=== PATIENT | female | born 1955 | race Caucasian/White ===

== ENCOUNTER → 2021-01-01 10:42 | Outpatient (CLI) | payer MEDICARE, OTHER, SELFPAY | PROVIDERS: PCP Physician Assistant; Referring Provider Physician Assistant; Visit Provider Physician Assistant | DX: M81.0 Age-related osteoporosis without current pathological fracture (principal) | CPT/HCPCS: 77080 ==

== ENCOUNTER → 2021-01-10 08:03 | Outpatient (CLI) | payer MEDICARE, OTHER, SELFPAY ==
--- NOTE | 2021-01-10 | DI.MG.S_ITS ---
BILATERAL DIGITAL SCREENING MAMMOGRAM 3D/2D WITH CAD: 01/10/2021 CLINICAL: Routine screening. Comparison is made to exams dated: 08/20/2019 mammogram, 02/11/2018 mammogram, and 11/25/2016 mammogram - outside location. The tissue of both breasts is predominantly fatty. Current study was also evaluated with a Computer Aided Detection (CAD) system. There are benign cysts in both breasts. There also are benign diffuse calcifications in both breasts. Additionally, there are benign calcifications in both breasts. No significant masses, calcifications, or other findings are seen in either breast. There has been no significant interval change. IMPRESSION: BENIGN There is no mammographic evidence of malignancy. A 1 year screening mammogram is recommended. This exam was interpreted at Station ID: [id number]. NOTE: For mammograms, a report in lay terms will be sent to the patient. Approximately 15% of breast malignancies will not be visualized mammographically. In the management of a palpable breast mass, a negative mammogram must not discourage biopsy of a clinically suspicious lesion. Electronically Signed By: Oliver Thomason acr/penrad:01/10/2021 09:38:59 letter sent: Normal Exam ACR BI-RADS Category 2: Benign Finding(s) 3342F
== END ==
PROVIDERS: PCP Physician Assistant; Referring Provider Physician Assistant; Visit Provider Physician Assistant
DX: Z12.31 Encounter for screening mammogram for malignant neoplasm of breast (principal)
CPT/HCPCS: 77063; 77067

== ENCOUNTER → 2021-02-20 10:07 | Outpatient (CLI) | payer MEDICARE, OTHER, SELFPAY ==
--- NOTE | 2021-02-20 | DI.CT.S_ITS ---
PROCEDURE: CT ABDOMEN PELVIS W CON INDICATIONS: Left lower quadrant pain TECHNIQUE: After the administration of intravenous contrast, axial sections acquired from the lung bases to the pubic symphysis. Coronal and sagittal reformats were performed. For radiation dose reduction, the following was used: automated exposure control, adjustment of mA and/or kV according to patient size. COMPARISON: None. FINDINGS: Image quality: Excellent. Lung bases: Unremarkable. Small hiatal hernia. Heart: No significant findings. ABDOMEN: Liver: Liver is normal in size. Mild hepatic fatty infiltration. There are multiple low-density nodules in liver, compatible with hepatic cysts. Gallbladder: Unremarkable. Biliary ducts: Unremarkable. Pancreas: Unremarkable. Spleen: Unremarkable. Adrenal Glands: Unremarkable. Kidneys and Ureters: Unremarkable. Stomach and Bowel: There is diffuse colonic wall thickening involving the transverse colon, splenic flexure, descending and sigmoid colon consistent with colitis. Peritoneum: No abnormal intraperitoneal fluid. No free air. Ventral Wall: No hernias. Abdominal Nodes: No retroperitoneal or mesenteric adenopathy by size criteria. Vessels: Aorta and inferior vena cava are normal in size. PELVIS: Pelvic Organs: Uterus is normal. Ovaries are not well seen. No pathological free-fluid in pelvis.. Bladder: Unremarkable. Pelvic Nodes: No enlarged lymph nodes. Miscellaneous: No hernias are seen. Bones: There is moderate degenerative disease at L5-S1. IMPRESSION: 1. Diffuse colonic wall thickening involving the transverse colon, splenic flexure, descending and sigmoid colon consistent with colitis. Differential diagnoses include infectious colitis versus inflammatory bowel disease. Recommend clinical correlation. 2. Low-density nodules in liver are most likely hepatic cysts. 3. Hepatic steatosis. Dictated by: Art Catalan M.D. on 02/21/2021 at 12:12 Approved by: Art Catalan M.D. on 02/21/2021 at 12:57
== END ==
PROVIDERS: PCP Physician Assistant; Referring Provider Internal Medicine Gastroenterology; Visit Provider Internal Medicine Gastroenterology
DX: R10.32 Left lower quadrant pain (principal); K44.9 Diaphragmatic hernia without obstruction or gangrene; K76.0 Fatty (change of) liver, not elsewhere classified
CPT/HCPCS: 74177

== ENCOUNTER → 2022-02-27 15:43 | Outpatient (CLI) | payer MEDICARE, OTHER, SELFPAY ==
[2022-02-27 17:50] LABS: Cancer Antigen 125 < 5.5 U/mL (0-35)
== END ==
PROVIDERS: PCP Physician Assistant; Referring Provider Obstetrics & Gynecology; Visit Provider Obstetrics & Gynecology
DX: R10.32 Left lower quadrant pain (principal)
CPT/HCPCS: 36415; 86304

== ENCOUNTER → 2022-04-29 11:43 | Outpatient (CLI) | payer MEDICARE, OTHER, SELFPAY ==
--- NOTE | 2022-04-29 11:46 | DI.RAD.S_ITS ---
PROCEDURE: XR HIP W PEL IF DONE LT 2V INDICATIONS: Pain in left hip TECHNIQUE: AP pelvis with lateral view(s) of the left hip(s). COMPARISON: None. FINDINGS: Bones: No fractures or dislocations. Pelvic ring appears intact. No suspicious bony lesions. Soft tissues: The visualized bowel gas pattern is normal. No suspicious soft tissue calcifications. IMPRESSION: Normal left hip. Dictated by: Grecia Tello M.D. on 04/29/2022 at 16:18 Approved by: Grecia Tello M.D. on 04/29/2022 at 16:18
== END ==
PROVIDERS: PCP Physician Assistant; Referring Provider Physician Assistant; Visit Provider Physician Assistant
DX: M25.552 Pain in left hip (principal)
CPT/HCPCS: 73502

== ENCOUNTER → 2023-03-22 08:08 | Outpatient (CLI) | payer MEDICARE, OTHER, SELFPAY ==
[2023-03-22 08:56] LABS: Hematocrit 36.9 % (36-46); Hemoglobin 12.4 g/dL (12.0-16.0); Mean Corpuscular HGB Conc 33.5 % (30-36); Mean Corpuscular Hemoglobin 30.3 PG (26-34); Mean Corpuscular Volume 90.4 fL (80-100); Platelet Count 184 X10^3/uL (150-400); Red Blood Cell Count 4.08 X10^6/uL (4.0-5.2); Red Cell Distribution Width 13.3 % (11.6-14.8); White Blood Cell Count 4.1 X10^3/uL (4.5-11.0)
[2023-03-22 09:12] LABS: Alanine Aminotransferase 16 IU/L (<35); Albumin 4.1 g/dL (3.5-5.0); Albumin Globulin Ratio 1.6 (1.0-2.8); Alkaline Phosphatase 42 U/L (38-126); Aspartate Aminotransferase 21 IU/L (14-36); BUN Creatinine Ratio 26.5 (6-22); Bilirubin Total 0.4 mg/dL (0.2-1.3); Blood Urea Nitrogen 13 mg/dL (7-17); Calcium 8.4 mg/dL (8.4-10.2); Carbon Dioxide 26 mmol/L (22-32); Chloride 105 mmol/L (98-107); Cholesterol 188 mg/dL (140-199); Estimated Glomerular Filt Rate > 60 mL/min (>60); Globulin 2.5 g/dL (1.7-4.1); Glucose 92 mg/dL (80-110); HDL Cholesterol 55 mg/dL (40-60); HEMOLYSIS 18 (0-50); LDL Cholesterol Calculated 115 mg/dL (<100); Potassium 4.3 mmol/L (3.4-5.1); Sodium 137 mmol/L (137-145); Total Protein 6.6 g/dL (6.3-8.2); Triglycerides 88 mg/dL (35-150)
[2023-03-22 09:40] LABS: Thyroid Stimulating Hormone 2.03 uIU/mL (0.47-4.68)
[2023-03-22 10:04] LABS: Free T4, Direct Thyroxine 0.99 ng/dL (0.78-2.19)
== END ==
PROVIDERS: PCP Registered Nurse Diabetes Educator; Referring Provider Registered Nurse Diabetes Educator; Visit Provider Registered Nurse Diabetes Educator
DX: E78.5 Hyperlipidemia, unspecified (principal); R53.83 Other fatigue; R63.5 Abnormal weight gain
CPT/HCPCS: 36415; 80053; 80061; 84439; 84443; 85027

== ENCOUNTER 2023-04-10 13:14 | Emergency (ER) | payer MEDICARE, OTHER, SELFPAY ==
[2023-04-10 13:28] VITALS: BP 175/79; PULSE 92; RESP 18; TEMP 36.9; O2SAT 98; BMI 21.7
[2023-04-10 14:28] LABS: Add Manual Diff / Slide Review NO; Basophils Absolute Auto 100 /uL (0-100); Basophils Percent Auto 1.2 % (0-2); Eosinophils Absolute Auto 100 /uL (0-450); Eosinophils Percent Auto 2.4 % (2-4); Hematocrit 39.9 % (36-46); Hemoglobin 13.5 g/dL (12.0-16.0); Lymphocytes Absolute Auto 1600 /uL (1100-4500); Lymphocytes Percent Auto 29.2 % (25-40); Mean Corpuscular HGB Conc 33.7 % (30-36); Mean Corpuscular Hemoglobin 30.3 PG (26-34); Mean Corpuscular Volume 89.7 fL (80-100); Monocytes Absolute Auto 400 /uL (0-900); Monocytes Percent Auto 8.2 % (3-14); Neutrophils Absolute Auto 3200 /uL (1500-7000); Platelet Count 218 X10^3/uL (150-400); Red Blood Cell Count 4.45 X10^6/uL (4.0-5.2); Red Cell Distribution Width 13.1 % (11.6-14.8); White Blood Cell Count 5.4 X10^3/uL (4.5-11.0)
[2023-04-10 14:41] LABS: Alanine Aminotransferase 27 IU/L (<35); Albumin 4.6 g/dL (3.5-5.0); Albumin Globulin Ratio 1.5 (1.0-2.8); Alkaline Phosphatase 45 U/L (38-126); Aspartate Aminotransferase 33 IU/L (14-36); Bilirubin Total 0.9 mg/dL (0.2-1.3); Blood Urea Nitrogen 12 mg/dL (7-17); Calcium 9.3 mg/dL (8.4-10.2); Carbon Dioxide 23 mmol/L (22-32); Chloride 105 mmol/L (98-107); Estimated Glomerular Filt Rate > 60 mL/min (>60); Globulin 3.1 g/dL (1.7-4.1); Glucose 96 mg/dL (80-110); HEMOLYSIS < 15 (0-50); Lipase 45 U/L (23-300); Potassium 4.2 mmol/L (3.4-5.1); Sodium 136 mmol/L (137-145); Total Protein 7.7 g/dL (6.3-8.2)
[2023-04-10 15:20] VITALS: BP 111/62; PULSE 87; RESP 18; O2SAT 98
--- NOTE | 2023-04-10 15:48 | ED_ITS ---
HPI - General Adult General Chief complaint: Abdominal Pain Stated complaint: ABD pain, L shoulder pain Time Seen by Provider: 04/10/23 15:20 Source: patient Mode of arrival: Ambulatory History of Present Illness HPI narrative: 67-year-old female who is here for evaluation of left-sided abdominal pain. States the symptoms started yesterday. Became fairly intense overnight but now has improved. She also with the same time had tingling in her left upper arm from her shoulder to her elbow. She also thinks that this is improved. Her abdominal pain is not related to nor is change by urinating or bowel movements. She is no history of kidney stones. She went to the walk-in clinic and was sent to the emergency department for further evaluation. She denies chest pain or shortness of breath. Related Data Previous Rx's Medication Instructions Recorded progesterone micronized 100 mg 100 mg PO QPM #90 caps 02/18/23 capsule estradiol 0.05 mg/24 hr semiweekly 1 patch transdermal ONCE #24 02/28/23 transdermal patch patches clonazepam 0.5 mg tablet 0.5 mg PO BEDTIME PRN anxiety #90 03/17/23 tabs gabapentin 300 mg capsule 300 mg PO DAILY #90 caps 03/17/23 Allergies Allergy/AdvReac Type Severity Reaction Status Date / Time No Known Drug Allergies Allergy Unverified 03/17/23 11:25 Review of Systems Cardiovascular Cardiovascular: Reports system reviewed and no additional complaints, except as documented Respiratory Respiratory: Reports system reviewed and no additional complaints, except as documented Gastrointestinal Gastrointestinal: Reports system reviewed and no additional complaints, except as documented Integumentary/Breasts Skin/Breast: Reports system reviewed and no additional complaints, except as documented Neurologic Neurologic: Reports system reviewed and no additional complaints, except as documented Hematologic/Lymphatic On Anticoagulants: No Patient History Medical History Anxiety Chronic LLQ pain DDD (degenerative disc disease) History of osteoporosis History of UTI Other low back pain Postmenopausal atrophic vaginitis Postmenopausal HRT (hormone replacement therapy) Rosacea Surgical History History of surgery Hx of unilateral salpingectomy (03/29/10) Status post emergency section Status post laparoscopy Social History household members: spouse Smoking Status: Never smoker alcohol intake: current Smoking Status: Never smoker alcohol intake frequency: a few times a week Substance Use Type: does not use Exam Initial Vital Signs Initial Vital Signs: Vital Signs Temperature 98.4 F 04/10/23 13:28 Pulse Rate 92 H 04/10/23 13:28 Respiratory Rate 18 04/10/23 13:28 Blood Pressure 175/79 H 04/10/23 13:28 Pulse Oximetry 98 04/10/23 13:28 Oxygen Delivery Method Room Air 04/10/23 13:28 HENMT Head: normal to inspection and normocephalic Resp Effort & Inspection: normal respiratory effort Auscultation: clear to auscultation bilaterally Cardio Rate: regular rate Rhythm: regular rhythm GI Inspection: normal to inspection and non-distended Palpation: soft and No tender Skin General: no rashes or lesions noted Neuro General: patient alert, patient awake and moves all extremities Extrem Other: Full range of motion left shoulder. No tenderness to palpation. Course Orders Ordered: ED Orders 04/10/23 13:54 EKG-12 Lead Stat 04/10/23 14:19 Complete Blood Count AUTO DIFF Stat Comprehensive Metabolic Panel Stat Lipase Stat Vital Signs Vital signs: Vital Signs - 8 hr 04/10/23 13:28 04/10/23 15:20 Temperature 98.4 F Pulse Rate 92 H 87 Respiratory Rate 18 18 Blood Pressure 175/79 H 111/62 Pulse Oximetry 98 98 Oxygen Delivery Method Room Air Medical Decision Making Lab Data Lab results reviewed: Yes I reviewed the patient's lab results. 04/10/23 14:19 04/10/23 14:19 Labs: Lab Results 04/10/23 04/10/23 Range/Units 14:19 14:19 WBC 5.4 (4.5-11.0) X10^3/uL RBC 4.45 (4.0-5.2) X10^6/uL Hgb 13.5 (12.0-16.0) g/dL Hct 39.9 (36-46) % MCV 89.7 (80-100) fL MCH 30.3 (26-34) PG MCHC 33.7 (30-36) % RDW 13.1 (11.6-14.8) % Plt Count 218 (150-400) X10^3/uL Neut % (Auto) 59.0 (50-75) % Lymph % (Auto) 29.2 (25-40) % Petroleum % (Auto) 8.2 (3-14) % Eos % (Auto) 2.4 (2-4) % Baso % (Auto) 1.2 (0-2) % Neut # (Auto) 3200 (7249-4481) /uL Lymph # (Auto) 1600 (5187-3351) /uL Petroleum # (Auto) 400 (0-900) /uL Eos # (Auto) 100 (0-450) /uL Baso # (Auto) 100 (0-100) /uL Sodium 136 L (137-145) mmol/L Potassium 4.2 (3.4-5.1) mmol/L Chloride 105 (98-107) mmol/L Carbon Dioxide 23 (22-32) mmol/L BUN 12 (7-17) mg/dL Creatinine 0.50 L (0.52-1.04) mg/dL Estimated GFR > 60 (>60) mL/min BUN/Creatinine Ratio 24.0 H (6-22) Glucose 96 (80-110) mg/dL Calcium 9.3 (8.4-10.2) mg/dL Total Bilirubin 0.9 (0.2-1.3) mg/dL AST 33 (14-36) IU/L ALT 27 (<35) IU/L Alkaline Phosphatase 45 (38-126) U/L Total Protein 7.7 (6.3-8.2) g/dL Albumin 4.6 (3.5-5.0) g/dL Globulin 3.1 (1.7-4.1) g/dL Albumin/Globulin Ratio 1.5 (1.0-2.8) Lipase 45 (23-300) U/L Urine Dip Bedside Urine Glucose Negative Bedside Urine Bilirubin - Negative Bedside Urine Ketone - Negative Urine Specific [place] 1.010 Bedside Urine Occult Blood - Negative Bedside Urine pH 6.0 Bedside Urine Protein - Negative Bedside Urine Urobilinogen - Negative Bedside Urine Nitrite - Negative Bedside Urine Leukocytes - Negative Esterase Point of care testing: Urine Dip Bedside Urine Glucose Negative Bedside Urine Bilirubin - Negative Bedside Urine Ketone - Negative Urine Specific [place] 1.010 Bedside Urine Occult Blood - Negative Bedside Urine pH 6.0 Bedside Urine Protein - Negative Bedside Urine Urobilinogen - Negative Bedside Urine Nitrite - Negative Bedside Urine Leukocytes - Negative Esterase ECG Data Attestation: I personally reviewed and interpreted this ECG as follows: Interpretation: Sinus rhythm Ventricular rate of 97 Normal axis Normal QRS Normal QTC No ST T wave changes MDM Narrative Medical decision making narrative: Patient has had symptoms from yesterday and it has actually improved but not completely gone. Her workup here and exam is relatively unremarkable. I have l ow suspicion for ACS. We did consider potential for kidney stone as her pain was fairly intense last night but has improved. We discussed potentially obtaining another CT scan although she is had multiple CT scans in the past because she is chronic abdominal and pelvic discomfort. She would rather go home to see what happens over the next couple days. We discussed the use of anti-inflammatories. She was given return precautions. She expressed understanding and agreement with plan. Discharge Plan Departure Patient Disposition: Home Clinical Impression: Arm pain, left, Abdominal pain Instructions: DI for Abdominal Pain-Adult Activity Restrictions/Additional Instructions: Recommend that you continue to take all of your medications as directed. If your symptoms worsen over the next 24-48 hours please return to the emergency department for further evaluation. Prescriptions: No Action progesterone micronized 100 mg capsule 100 mg PO QPM Qty: 90 3RF estradiol 0.05 mg/24 hr patch semiweekly 1 patch transdermal ONCE Qty: 24 4RF gabapentin 300 mg capsule 300 mg PO DAILY Qty: 90 1RF clonazepam 0.5 mg tablet 0.5 mg PO BEDTIME PRN (Reason: anxiety) Qty: 90 0RF Referrals: Johny Barkley ARNP [Primary Care Provider] - Stand Alone Forms: Patient Portal/API
== END 2023-04-10 15:53 | disposition home or self-care (01) ==
PROVIDERS: Emergency Provider Emergency Medicine; PCP Registered Nurse Diabetes Educator
DX: M79.602 Pain in left arm (principal); R10.9 Unspecified abdominal pain
CPT/HCPCS: 36415; 80053; 81003; 83690; 85025; 93005; 93010; 99283; 99284

== ENCOUNTER → 2023-04-17 12:08 | Outpatient (CLI) | payer MEDICARE, OTHER, SELFPAY ==
[2023-04-18 17:26] LABS: Deamidated Gliadin Ab IgA 4 units (0-19); Deamidated Gliadin Ab IgG 2 units (0-19); Immunoglobulin A,Qn 227 mg/dL (87-352); t-Transglutaminase IgA <2 U/mL (0-3)
[2023-04-20 21:26] LABS: Almond IgE 0.12 kU/L (Class 0/I); Cashew Nut IgE <0.10 kU/L (Class 0); Codfish Allergy IgE < 0.10 kU/L (Class 0); Egg White IgE <0.10 kU/L (Class 0); Hazelnut IgE 1.97 kU/L (Class III); Milk IgE <0.10 kU/L (Class 0); Peanut IgE 0.24 kU/L (Class 0/I); Salmon Allergy IgE < 0.10 kU/L (Class 0); Sesame seed Allergy IgE 0.25 kU/L (Class 0/I); Shrimp IgE <0.10 kU/L (Class 0); Soybean IgE 0.11 kU/L (Class 0/I); Tuna Allergy IgE < 0.10 kU/L (Class 0); Walnut IgE <0.10 kU/L (Class 0); Wheat Allergy IgE 0.19 kU/L (Class 0/I)
== END ==
PROVIDERS: PCP Registered Nurse Diabetes Educator; Referring Provider Registered Nurse Diabetes Educator; Visit Provider Registered Nurse Diabetes Educator
DX: R10.9 Unspecified abdominal pain (principal); N89.8 Other specified noninflammatory disorders of vagina
CPT/HCPCS: 36415; 82784; 83516; 86003; 87210; 87220

== ENCOUNTER 2023-09-18 10:54 | Day surgery (SDC) | payer MEDICARE, OTHER, SELFPAY ==
[2023-09-03 08:40] VITALS: BMI 22.6
--- NOTE | 2023-09-18 | PATH_ITS ---
[facility] Accession Number: [id number] No. of containers..01 Tissue . 01 Material submitted: . fallopian tube - RIGHT FALLOPIAN TUBE . 01 Diagnosis: RIGHT FALLOPIAN TUBE, RIGHT SALPINGECTOMY: Fallopian tube without pathologic abnormalities. Negative for atypia and malignancy. MRV 09/22/2023 1602 Local . 01 Electronically signed: . Steven Guerra MD, Pathologist NPI- [id number] . 01 Gross description: . The specimen is received in formalin labeled with the patient's name, , and right fallopian tube, and consists of a single violaceous, fimbriated fallopian tube measuring 5.3 cm in length and 1.0 cm in diameter. No paratubal cysts are seen. The external surface is inked blue. A lumen is identified. Manager Printing sections to include the entire bisected fimbriae are submitted in cassette A1. ([id number]) /HELENE 09/20/2023 2230 Local . 01 Pathologist provided ICD-10: R10.32 . 01 CPT . 391274 Specimen Comment: A courtesy copy of this report has been sent to [phone] Performed at: 01 [facility] [address] [place] [address] Suite [facility] [place], [place], [place] [id number] MD Alvin Alcaraz MD Phone: [phone]
[2023-09-18 11:28] VITALS: BMI 22.6
[2023-09-18 11:45] VITALS: BP 114/71; PULSE 77; RESP 16; TEMP 36.1; O2SAT 98
[2023-09-18] MEDS: LACTATED RINGERS 1,000 ML 42 ML IV ×2 (11:59→13:55)
--- NOTE | 2023-09-18 12:40 | PM.GYNHP.1 ---
History of Present Illness History of Present Illness Reason for admission: pelvic pain (Left lower quadrant) Narrative: Dayna Miranda is a 68 year old female 1 para 1 who presents for diagnostic laparoscopy with possible lysis of adhesions due to persistent left lower quadrant pain. She has had a prior emergency section, and then years later a diagnostic laparoscopy with lysis of adhesions. 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 Chronic pelvic pain in female Other low back pain Rosacea Anxiety DDD (degenerative disc disease) Chronic LLQ pain Postmenopausal atrophic vaginitis History of osteoporosis History of UTI Postmenopausal HRT (hormone replacement therapy) Surgical History Hx of unilateral salpingectomy (03/29/10) History of surgery Status post laparoscopy Status post emergency section Social History household members: spouse Smoking Status: Never smoker alcohol intake: current Meds Home Medications and Allergies Home Medications Medication Instructions Recorded Confirmed Type progesterone micronized 100 mg 100 mg PO QPM #90 caps 02/18/23 09/18/23 Rx capsule estradiol 0.05 mg/24 hr semiweekly 1 patch transdermal ONCE #24 02/28/23 09/18/23 Rx transdermal patch patches gabapentin 300 mg capsule 300 mg PO DAILY #90 caps 03/17/23 09/18/23 Rx clonazepam 0.5 mg tablet 0.5 mg PO BEDTIME PRN anxiety #30 09/03/23 09/18/23 Rx tabs Allergies Allergy/AdvReac Type Severity Reaction Status Date / Time No Known Drug Allergies Allergy Verified 09/18/23 11:18 Exam Vital Signs (past 8 hours): - 09/18/23 11:45 Temperature 97 F L Pulse Rate 77 Respiratory Rate 16 Blood Pressure 114/71 Pulse Oximetry 98 Oxygen Delivery Method Room Air Oxygen Delivery Method Room Air Narrative Exam Narrative: HEENT: No thyromegaly, no anterior cervical or supraclavicular lymphadenopathy. Lungs:Clear to auscultation bilaterally, no wheezes. Cardiovascular: Regular rate and rhythm, no murmurs, rubs, or gallops. Abdomen: Well-healed Pfannenstiel and laparoscopy scars. No hepatosplenomegaly. No masses palpable. External genitalia: Normal Vagina: Normal Cervix: Normal Bimanual exam: 6 Week size anteverted uterus. Mobile. Extremities: No edema Assessment & Plan Assessment & Plan narrative: Assessment: 68-year-old 1 para 1 with persistent left lower quadrant pain History of an emergency section and then a diagnostic laparoscopy with lysis of adhesions and removal of a tube Plan: Diagnostic laparoscopy with possible lysis of adhesions, possible removal of remaining fallopian tube The risks, benefits, and alternatives to the procedure were explained to the patient. The risks including bleeding, infection, injury to the bowel, bladder, or ureters. She understands these risks and agrees to proceed. A full par Q was held and consent form was signed. Time Spent With Patient Time with patient: less than 30 minutes
[2023-09-18] MEDS: ACETAMINOPHEN 325 MG TABLET 975 MG PO (12:50)
--- NOTE | 2023-09-18 12:51 | PM.PREOP ---
Pre-operative Note Interval Note History & Physical reviewed/Exam performed by Physician: Yes Changes to H&P: No H&P completed within 30 days and has changed as indicated here:: 09/18/23
--- NOTE | 2023-09-18 13:43 | SUR.OPER ---
Lithotomy on padded OR bed. [place] Pad Positioner under torso. Head on pillow, arms padded and tucked at sides. Legs secured in padded yellow fins stirrups.
[2023-09-18] MEDS: BUPIVACAINE 0.5% (PF) 30 ML, EPINEPHrine 0.15 MG INJ (13:56)
[2023-09-18 14:20] VITALS: BP 132/74; PULSE 69; RESP 16; TEMP 36.2; O2SAT 98
[2023-09-18 14:25] VITALS: BP 135/75; PULSE 78; RESP 16; O2SAT 98
--- NOTE | 2023-09-18 14:25 | PM.GYNOP.1 ---
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 possible lysis of adhesions Not Applicable Anna Cortes MD Indications: 5 wk size anteverted uterus Normal ovaries Normal left tube Normal liver Normal appendix Right colon to adnexal/sidewall adhesions Gallbladder not visualized Surgeon: Anna Cortes Anesthesia Type: General and Local Operative Notes Findings: Left colon stuck to the left pelvic sidewall Normal left ovary Normal right tube and ovary Normal liver and gallbladder Closure Type: primary Specimen(s): right tube Estimated blood loss (mL): 3 Blood products transfused: none Procedure in detail: After informed consent was obtained, the patient was taken to the operating room where she was placed in the dorsal supine position. After adequate general endotracheal anesthesia was achieved, she was placed in the dorsal lithotomy position, and prepped and draped in the usual sterile fashion. A time-out was performed. A bivalve speculum was placed into the vagina and the anterior lip of the cervix was grasped with a single-tooth tenaculum. The cervical os was sequentially dilated until the Zumi uterine manipulator could pass easily into the endometrial cavity. The single-tooth tenaculum was removed from the anterior lip of the cervix. The bivalve speculum was removed from the vagina. Attention was turned to the abdomen where 6 cc of 0.5% Marcaine with epinephrine were injected in the umbilical fold. A 5 mm incision was made. The Veress needle was placed into the peritoneal cavity, and its placement confirmed by aspiration and drop test. The abdominal cavity was insufflated with 3.0 L of CO2. The Veress needle was removed, and a 5 mm trocar was placed without difficulty. The pelvis and abdomen were examined with findings noted above. Two other incisions were made after 6 cc of 0.5% Marcaine with epinephrine were injected, these were 4 cm lateral to the midline at the level of the umbilicus. Two 5 mm trocars were placed under direct visualization. Using gentle traction, the right colon was taken down off of the left pelvic sidewall using the endo Joni both with blunt dissection, cutting, and cautery with cutting where there were small blood vessels. This was all done with care to avoid the bowel. There was no bleeding noted. The instruments were removed from the abdomen. The CO2 was allowed to escape. The incisions were repaired with 4-0 Monocryl in a subcuticular fashion. Steri-Strips and Allevyn dressings were placed. The Zumi uterine manipulator was removed from the uterus. Sponge, lap, and instrument counts were correct x2. The patient tolerated the procedure well, and was taken to PACU in stable condition. Complications: none Post-operative Condition: stable Disposition: PACU Plan for aftercare: Home after recovery
[2023-09-18 14:30] VITALS: BP 135/75; PULSE 63; RESP 16; O2SAT 95
[2023-09-18 14:35] VITALS: BP 136/64; PULSE 63; RESP 16; O2SAT 98
[2023-09-18 14:45] VITALS: BP 133/69; PULSE 57; RESP 16; O2SAT 98
[2023-09-18] MEDS: OXYCODONE IR 5 MG TABLET PO (14:53)
== END 2023-09-18 15:29 | disposition home or self-care (01) ==
PROVIDERS: PCP Registered Nurse Diabetes Educator; Referring Provider Obstetrics & Gynecology; Visit Provider Obstetrics & Gynecology
PROC: (CPT 49320; principal; 2023-09-18 12:15)
DX: R10.32 Left lower quadrant pain (principal); N73.6 Female pelvic peritoneal adhesions (postinfective)
CPT/HCPCS: 58661; J0171; J0330; J1100; J1885; J2405; J2704; J3010

== ENCOUNTER → 2023-12-01 14:13 | Outpatient (CLI) | payer MEDICARE, OTHER, SELFPAY ==
--- NOTE | 2023-12-01 14:16 | DI.MG.S_ITS ---
BILATERAL DIGITAL SCREENING MAMMOGRAM 3D/2D WITH CAD: 12/01/2023 CLINICAL: Routine screening. Family history of breast cancer. Comparison is made to exams dated: 01/10/2021 mammogram - [facility], 08/20/2019 mammogram, and 02/11/2018 mammogram - outside location. Both breasts are almost entirely fatty (category a/<25% glandular tissue). Current study was also evaluated with a Computer Aided Detection (CAD) system. There are benign cysts in both breasts. There also are benign diffuse calcifications in both breasts. Additionally, there are benign calcifications in both breasts. No significant masses, calcifications, or other findings are seen in either breast. There has been no significant interval change. IMPRESSION: BENIGN There is no mammographic evidence of malignancy. A 1 year screening mammogram is recommended. Based on the Tyrer Cuzick model (a risk assessment model) the patient's lifetime risk is 5.4% and her 10 year risk is 3.0%. According to the ACR, ACS, and NCCN guidelines, an annual breast MRI exam along with mammogram is recommended if the patient's lifetime risk is 20% or greater. This exam was interpreted at Station ID: [id number]. NOTE: For mammograms, a report in lay terms will be sent to the patient. Approximately 15% of breast malignancies will not be visualized mammographically. In the management of a palpable breast mass, a negative mammogram must not discourage biopsy of a clinically suspicious lesion. Electronically Signed By: Grecia reaves/tiffanie:12/01/2023 16:57:47 letter sent: Normal Exam ACR BI-RADS Category 2: Benign Finding(s) 3342F
--- NOTE | 2023-12-01 14:16 | DI.RAD.S_ITS ---
PROCEDURE: XR DEXA AXIAL SKELETON INDICATIONS: ROUTINE SCREENING; Age-related osteoporosis COMPARISON: [facility], , XR DEXA AXIAL SKELETON, 01/01/2021, 11:03. FINDINGS: Lumbar Spine: Bone mineral density 0.752 g/cm2, T score -2.7, dissimilar scan type does not allow for statistical comparison. Left Hip: Bone mineral density 0.683 g/cm2, T score -2.1, dissimilar scan type does not allow for statistical comparison. Left Femoral Neck: Bone mineral density 0.563 g/cm2, T score -2.6, dissimilar scan type does not allow for statistical comparison. Right Hip: Bone mineral density 0.682 g/cm2, T score -2.1, dissimilar scan type does not allow for statistical comparison. Right Femoral Neck: Bone mineral density 0.601 g/cm2, T score -2.2, dissimilar scan type does not allow for statistical comparison. Fracture Risk Calculation (when applicable): Not applicable due to osteoporosis diagnosis. (T score greater or equal to -1.0 to: NORMAL) (T score from -1.1 to -2.4: OSTEOPENIA) (T score less than or equal to -2.5: OSTEOPOROSIS) IMPRESSION: Osteoporosis. Follow-up guidelines as follows: Osteoporosis: Consider a repeat DEXA and Vertebral Fracture Assessment (VFA) exam in 2 years or sooner if medically necessary, to reassess this patient's status. Osteopenia: Consider a repeat DEXA in 2-3 years to reassess this patient's status, or if there is a new clinical indication. Normal: Consider a repeat DEXA in 5 years or sooner, or if there is a new clinical indication. Dictated by: Rodrigo Cho M.D. on 12/01/2023 at 15:13 Approved by: Rodrigo Cho M.D. on 12/01/2023 at 15:14
== END ==
PROVIDERS: PCP Registered Nurse Diabetes Educator; Referring Provider Registered Nurse Diabetes Educator; Visit Provider Registered Nurse Diabetes Educator
DX: M81.0 Age-related osteoporosis without current pathological fracture (principal); Z12.31 Encounter for screening mammogram for malignant neoplasm of breast; Z13.820 Encounter for screening for osteoporosis; R92.313 Mammographic fatty tissue density, bilateral breasts
CPT/HCPCS: 77063; 77067; 77080

== ENCOUNTER → 2025-01-07 14:03 | Outpatient (CLI) | payer MEDICARE, OTHER, SELFPAY | PROVIDERS: PCP Registered Nurse Diabetes Educator; Referring Provider Registered Nurse Diabetes Educator; Visit Provider Physician Assistant | DX: K59.00 Constipation, unspecified (principal) | CPT/HCPCS: 36415; 86231; 86258; 86364 ==

== ENCOUNTER → 2025-01-20 15:11 | Outpatient (CLI) | payer MEDICARE, OTHER, SELFPAY ==
--- NOTE | 2025-01-20 15:13 | DI.MG.S_ITS ---
MM screening mammo BI: 01/20/2025. BI-RADS: 2 CLINICAL: 69-year old female for bilateral screening mammogram. Tyrer-Cuzick lifetime risk of 5.4%. No personal or first-degree family history of breast cancer. The patient had a prior left breast biopsy. PRIOR EXAMS 12/01/2023, 01/10/2021. MAMMOGRAPHY TECHNIQUE: 2D and 3D (tomosynthesis) digital mammographic views obtained, with additional images as needed for full coverage. Current study was also evaluated with a Computer Aided Detection (CAD) system. DENSITY B. There are scattered areas of fibroglandular density. MAMMOGRAPHY FINDINGS Bilateral: Benign-appearing calcifications noted. There are no suspicious masses, calcifications, or other findings in the breast. IMPRESSION: * No evidence of malignancy with benign findings. RECOMMENDATIONS Bilateral * Annual screening mammography. OVERALL ASSESSMENT CATEGORY BI-RADS-2: Benign. The [employer] recommends annual screening mammography beginning at age 40 for women with average risk of breast cancer. ELECTRONICALLY SIGNED: Monroe Estrada M.D. on 01/23/2025 at 09:37:51 PM PT Interpreting Station ID: [id number]
== END ==
PROVIDERS: PCP Registered Nurse Diabetes Educator; Referring Provider Registered Nurse Diabetes Educator; Visit Provider Registered Nurse Diabetes Educator
DX: Z12.31 Encounter for screening mammogram for malignant neoplasm of breast (principal)
CPT/HCPCS: 77063; 77067

== ENCOUNTER → 2025-02-12 10:55 | Outpatient (CLI) | payer MEDICARE, OTHER, SELFPAY | PROVIDERS: PCP Registered Nurse Diabetes Educator; Referring Provider Registered Nurse Diabetes Educator; Visit Provider Chiropractor | DX: R30.0 Dysuria (principal) | CPT/HCPCS: 81002 ==

== ENCOUNTER → 2025-02-24 09:50 | Outpatient (CLI) | payer MEDICARE, OTHER, SELFPAY ==
[2025-02-24 10:54] LABS: Bilirubin Urine UA NEGATIVE (NEGATIVE); Color Urine UA YELLOW; Glucose Urine UA NEGATIVE (Negative); Ketones Urine UA NEGATIVE (NEGATIVE); Leukocyte Esterase Urine UA 1+ (NEGATIVE); Nitrite Urine UA POSITIVE (Negative); Occult Blood Urine UA 1+ (Negative); Protein Urine UA NEGATIVE (Negative); Specific Gravity Urine UA <=1.005 (1.000-1.035); Urobilinogen Urine UA 0.2 E.U./dL (0.2)
[2025-02-24 10:56] LABS: Appearance Urine UA Slightly Cloudy; pH Urine UA 7.0 (4.5-8.0)
[2025-02-24 11:01] LABS: Culture Indicated Urine Specimen Cultured
== END ==
PROVIDERS: PCP Registered Nurse Diabetes Educator; Referring Provider Registered Nurse Diabetes Educator; Visit Provider Chiropractor
DX: N39.0 Urinary tract infection, site not specified (principal)
CPT/HCPCS: 81001; 87077; 87086; 87186

== ENCOUNTER → 2025-04-01 14:09 | Outpatient (CLI) | payer MEDICARE, OTHER, SELFPAY ==
[2025-04-01 16:13] LABS: Appearance Urine UA CLEAR; Bilirubin Urine UA NEGATIVE (NEGATIVE); Color Urine UA YELLOW; Glucose Urine UA NEGATIVE (Negative); Ketones Urine UA NEGATIVE (NEGATIVE); Leukocyte Esterase Urine UA TRACE (NEGATIVE); Nitrite Urine UA NEGATIVE (Negative); Occult Blood Urine UA NEGATIVE (Negative); Protein Urine UA NEGATIVE (Negative); Specific Gravity Urine UA 1.020 (1.000-1.035); Urobilinogen Urine UA 0.2 E.U./dL (0.2)
[2025-04-01 16:16] LABS: pH Urine UA 5.5 (4.5-8.0)
[2025-04-01 16:22] LABS: Culture Indicated Urine Cult Not Indicated
[2025-04-02 14:39] LABS: Trichomoas vaginalis Negative (Negative)
== END ==
PROVIDERS: PCP Registered Nurse Diabetes Educator; Visit Provider Obstetrics & Gynecology
DX: R30.0 Dysuria (principal); N89.8 Other specified noninflammatory disorders of vagina
CPT/HCPCS: 81001; 87480; 87510; 87660

== ENCOUNTER → 2025-04-07 07:54 | Outpatient (CLI) | payer MEDICARE, OTHER, SELFPAY ==
[2025-04-07 08:33] LABS: Bilirubin Urine UA 1+ (NEGATIVE); Glucose Urine UA TRACE g/dL (Negative); Ketones Urine UA 3+ (NEGATIVE); Leukocyte Esterase Urine UA 1+ (NEGATIVE); Nitrite Urine UA POSITIVE (Negative); Occult Blood Urine UA NEGATIVE (Negative); Protein Urine UA 1+ (Negative); Specific Gravity Urine UA 1.020 (1.000-1.035); Urobilinogen Urine UA 4.0 E.U./dL (0.2)
[2025-04-07 08:34] LABS: Color Urine UA Orange; pH Urine UA 5.5 (4.5-8.0)
[2025-04-07 08:35] LABS: Appearance Urine UA Slightly Cloudy
[2025-04-07 09:18] LABS: Culture Indicated Urine Specimen Cultured
[2025-04-07 10:07] LABS: Ictotest Urine Negative (Negative)
== END ==
PROVIDERS: PCP Registered Nurse Diabetes Educator; Referring Provider Obstetrics & Gynecology; Visit Provider Obstetrics & Gynecology
DX: R30.0 Dysuria (principal)
CPT/HCPCS: 81001; 87077; 87086; 87186

== ENCOUNTER → 2025-04-17 06:20 | Outpatient (CLI) | payer MEDICARE, OTHER, SELFPAY | PROVIDERS: PCP Registered Nurse Diabetes Educator; Visit Provider Registered Nurse Diabetes Educator | DX: N39.0 Urinary tract infection, site not specified (principal) | CPT/HCPCS: 87086 ==

== ENCOUNTER → 2025-04-18 12:54 | Outpatient (CLI) | payer MEDICARE, OTHER, SELFPAY ==
[2025-04-18 13:24] LABS: Appearance Urine UA CLEAR; Bilirubin Urine UA NEGATIVE (NEGATIVE); Color Urine UA YELLOW; Glucose Urine UA NEGATIVE (Negative); Ketones Urine UA NEGATIVE (NEGATIVE); Leukocyte Esterase Urine UA NEGATIVE (NEGATIVE); Nitrite Urine UA NEGATIVE (Negative); Occult Blood Urine UA NEGATIVE (Negative); Protein Urine UA NEGATIVE (Negative); Specific Gravity Urine UA <=1.005 (1.000-1.035); Urobilinogen Urine UA 0.2 E.U./dL (0.2)
[2025-04-18 13:30] LABS: pH Urine UA 6.0 (4.5-8.0)
[2025-04-18 14:17] LABS: Culture Indicated Urine Cult Not Indicated
== END ==
PROVIDERS: PCP Registered Nurse Diabetes Educator; Referring Provider Registered Nurse Diabetes Educator; Visit Provider Registered Nurse Diabetes Educator
DX: N39.0 Urinary tract infection, site not specified (principal)
CPT/HCPCS: 81001

== ENCOUNTER → 2025-04-25 17:26 | Outpatient (CLI) | payer MEDICARE, OTHER, SELFPAY ==
[2025-04-25 18:09] LABS: Appearance Urine UA CLEAR; Bilirubin Urine UA NEGATIVE (NEGATIVE); Color Urine UA YELLOW; Glucose Urine UA NEGATIVE (Negative); Ketones Urine UA NEGATIVE (NEGATIVE); Leukocyte Esterase Urine UA NEGATIVE (NEGATIVE); Nitrite Urine UA POSITIVE (Negative); Occult Blood Urine UA NEGATIVE (Negative); Protein Urine UA NEGATIVE (Negative); Specific Gravity Urine UA <=1.005 (1.000-1.035); Urobilinogen Urine UA 1.0 E.U./dL (0.2)
[2025-04-25 18:11] LABS: pH Urine UA 6.0 (4.5-8.0)
[2025-04-25 18:20] LABS: Culture Indicated Urine Cult Not Indicated
== END ==
PROVIDERS: PCP Registered Nurse Diabetes Educator; Referring Provider Obstetrics & Gynecology; Visit Provider Obstetrics & Gynecology
DX: R30.0 Dysuria (principal)
CPT/HCPCS: 81001; 87086

== ENCOUNTER → 2025-05-19 11:44 | Outpatient (CLI) | payer MEDICARE, OTHER, SELFPAY | PROVIDERS: PCP Registered Nurse Diabetes Educator; Referring Provider Obstetrics & Gynecology; Visit Provider Obstetrics & Gynecology | DX: R30.0 Dysuria (principal) | CPT/HCPCS: 87086 ==

== ENCOUNTER → 2025-05-24 11:05 | Outpatient (CLI) | payer MEDICARE, OTHER, SELFPAY | PROVIDERS: PCP Registered Nurse Diabetes Educator; Referring Provider Registered Nurse Diabetes Educator; Visit Provider Obstetrics & Gynecology | DX: R30.0 Dysuria (principal) | CPT/HCPCS: 87086 ==

== ENCOUNTER → 2025-05-31 07:30 | Outpatient (CLI) | payer MEDICARE, OTHER, SELFPAY ==
[2025-05-31 07:58] LABS: Hematocrit 32.7 % (36-46); Hemoglobin 11.2 g/dL (12.0-16.0); Mean Corpuscular HGB Conc 34.1 % (30-36); Mean Corpuscular Hemoglobin 30.3 PG (26-34); Mean Corpuscular Volume 89.1 fL (80-100); Platelet Count 241 X10^3/uL (150-400)
[2025-05-31 08:53] LABS: Alanine Aminotransferase 15 IU/L (<35); Albumin 4.2 g/dL (3.5-5.0); Albumin Globulin Ratio 1.7 (1.0-2.8); Alkaline Phosphatase 59 U/L (38-126); Blood Urea Nitrogen 10 mg/dL (7-17); Calcium 9.1 mg/dL (8.4-10.2); Carbon Dioxide 26 mmol/L (22-32); Chloride 106 mmol/L (98-107); Cholesterol 195 mg/dL (140-199); Estimated Glomerular Filt Rate > 60 mL/min (>60); Globulin 2.5 g/dL (1.7-4.1); Glucose 98 mg/dL (70-99); HDL Cholesterol 53 mg/dL (40-60); HEMOLYSIS < 15 (0-50); Potassium 4.3 mmol/L (3.4-5.1); Sodium 138 mmol/L (137-145); Total Protein 6.7 g/dL (6.3-8.2); Triglycerides 129 mg/dL (35-150)
== END ==
PROVIDERS: PCP Registered Nurse Diabetes Educator; Referring Provider Registered Nurse Diabetes Educator; Visit Provider Registered Nurse Diabetes Educator
DX: E78.5 Hyperlipidemia, unspecified (principal); N39.46 Mixed incontinence; E87.1 Hypo-osmolality and hyponatremia; D72.819 Decreased white blood cell count, unspecified
CPT/HCPCS: 36415; 80053; 80061; 85027

== ENCOUNTER → 2025-06-01 10:54 | Outpatient (CLI) | payer MEDICARE, OTHER, SELFPAY ==
[2025-06-01 12:10] LABS: Add Manual Diff / Slide Review NO; Hematocrit 35.4 % (36-46); Hemoglobin 11.7 g/dL (12.0-16.0); Lymphocytes Absolute Auto 1500 /uL (1100-4500); Mean Corpuscular HGB Conc 33.1 % (30-36); Mean Corpuscular Hemoglobin 30.0 PG (26-34); Mean Corpuscular Volume 90.6 fL (80-100); Platelet Count 252 X10^3/uL (150-400)
[2025-06-01 12:18] LABS: HEMOLYSIS < 15 (0-50); Iron 94 ug/dL (37-170)
[2025-06-01 12:53] LABS: Percent Iron Saturation 25 % (15-50); Total Iron Binding Capacity 382 ug/dL (265-497); Transferrin 323 mg/dL (206-381)
[2025-06-01 13:15] LABS: Vitamin D 25 Hydroxy (D3) 46.1 ng/mL (30.0-100.0)
[2025-06-01 13:18] LABS: Ferritin 8 ng/mL (11-264)
[2025-06-01 15:12] LABS: Folate 12.7 ng/mL (2.76-20.0); Vitamin B12 246 pg/mL (239-931)
== END ==
PROVIDERS: PCP Registered Nurse Diabetes Educator; Referring Provider Registered Nurse Diabetes Educator; Visit Provider Registered Nurse Diabetes Educator
DX: D64.9 Anemia, unspecified (principal); M81.0 Age-related osteoporosis without current pathological fracture
CPT/HCPCS: 36415; 82306; 82607; 82728; 82746; 83540; 83550; 85025

== ENCOUNTER → 2025-06-11 12:46 | Outpatient (CLI) | payer MEDICARE, OTHER, SELFPAY | PROVIDERS: PCP Registered Nurse Diabetes Educator; Referring Provider Registered Nurse Diabetes Educator; Visit Provider Registered Nurse Diabetes Educator | DX: D64.9 Anemia, unspecified (principal); M81.0 Age-related osteoporosis without current pathological fracture | CPT/HCPCS: 82270 ==